=== PATIENT | male | born 2000 | race Hispanic/Latino ===

== ENCOUNTER 2018-04-17 11:13 | Emergency (ER) | payer OTHER ==
[~2018-04-17] VITALS: Ht 177.8 cm; Wt 67.7 kg
[2018-04-17] MEDS ORDERED: CLEOCIN300 MG PO (12:03)
[2018-04-17 12:07] VITALS: BP 131/74
== END 2018-04-17 12:19 | disposition home or self-care (01) | DRG 603 ==
LOC: ED 11:13
DX: L03.011 Cellulitis of right finger (principal); W26.8XXA Contact with other sharp object(s), not elsewhere classified, initial encounter; Y93.89 Activity, other specified; Y92.79 Other farm location as the place of occurrence of the external cause; Y99.0 Civilian activity done for income or pay